=== PATIENT | male | born 1975 | race Caucasian/White ===

== ENCOUNTER 2018-09-30 19:41 | Emergency (ER) | payer OTHER ==
[~2018-09-30] VITALS: Ht 167.6 cm; Wt 78.9 kg
[~2018-09-30 19:41] MED LIST: Bactrim Ds Tab1 EACH PO; Bentyl20 MG PO; CLON.5; Cleocin HCl150 MG PO; Naprosyn500 MG PO; Norco 5-325 Ta1 EACH PO; QUET100 PO; TRAM50; Ultram50 MG PO
== END 2018-09-30 21:40 | disposition home or self-care (01) ==
LOC: ER 19:41
DX: S00.83XA Contusion of other part of head, initial encounter (principal); R03.0 Elevated blood-pressure reading, without diagnosis of hypertension; Z88.0 Allergy status to penicillin; Z79.899 Other long term (current) drug therapy; Z87.891 Personal history of nicotine dependence; W50.0XXA Accidental hit or strike by another person, initial encounter
CPT/HCPCS: 70110; 96372; 99283-25; J1885

== ENCOUNTER 2019-01-16 12:15 | Emergency (ER) | payer OTHER ==
[~2019-01-16] VITALS: Ht 172.7 cm; Wt 72.6 kg
[2019-01-16] MEDS ORDERED: DICL75ER PO (13:02)
[2019-01-16] MEDS ORDERED: Monodox100 MG PO (13:02)
== END 2019-01-16 13:10 | disposition home or self-care (01) ==
LOC: ER 12:15
DX: G56.01 Carpal tunnel syndrome, right upper limb (principal); L03.113 Cellulitis of right upper limb; Z88.0 Allergy status to penicillin; Z79.899 Other long term (current) drug therapy; Z87.891 Personal history of nicotine dependence
CPT/HCPCS: 29125; 99283-25

== ENCOUNTER 2019-04-23 22:15 | Emergency (ER) | payer OTHER ==
[~2019-04-23] VITALS: Ht 167.6 cm; Wt 74.8 kg
[~2019-04-23 22:15] MED LIST changes: +DICL75ER PO; +Monodox100 MG PO
[2019-04-23] MEDS ORDERED: QUETIAPINE FUM400 M1 PO (23:13)
[2019-04-24] MEDS ORDERED: KETO10 PO (00:21)
[2019-04-24] MEDS ORDERED: CRUTCH2 XX (00:30)
== END 2019-04-24 01:02 | disposition home or self-care (01) ==
LOC: ER 22:15
DX: S82.301A Unspecified fracture of lower end of right tibia, initial encounter for closed fracture (principal); S82.891A Other fracture of right lower leg, initial encounter for closed fracture; F25.8 Other schizoaffective disorders; Z88.0 Allergy status to penicillin; Z79.899 Other long term (current) drug therapy; Z87.891 Personal history of nicotine dependence; W23.1XXA Caught, crushed, jammed, or pinched between stationary objects, initial encounter
CPT/HCPCS: 29515; 73610; 99283-25; A9270

== ENCOUNTER 2019-12-18 11:25 | Emergency (ER) | payer OTHER ==
[~2019-12-18] VITALS: Ht 167.6 cm; Wt 79.4 kg
[~2019-12-18 11:25] MED LIST changes: +CRUTCH2 XX; +KETO10 PO; +QUETIAPINE FUM400 M1 PO
== END 2019-12-18 12:25 | disposition home or self-care (01) ==
LOC: ER 11:25
DX: J06.9 Acute upper respiratory infection, unspecified (principal); F20.0 Paranoid schizophrenia; Z20.828 Contact with and (suspected) exposure to other viral communicable diseases; Z88.0 Allergy status to penicillin; Z79.899 Other long term (current) drug therapy
CPT/HCPCS: 99282

== ENCOUNTER 2020-02-12 15:00 | Emergency (ER) | payer OTHER ==
[~2020-02-12] VITALS: Ht 167.6 cm; Wt 75.8 kg
[2020-02-12] MEDS ORDERED: Norco 5-325 Ta1 EACH PO (16:20)
[2020-02-12] MEDS ORDERED: KETO10 PO (16:20)
[2020-02-12] MEDS ORDERED: CRUTCH4 XX (16:21)
== END 2020-02-12 16:29 | disposition home or self-care (01) ==
LOC: ER 15:00
DX: S83.411A Sprain of medial collateral ligament of right knee, initial encounter (principal); F20.0 Paranoid schizophrenia; Z88.0 Allergy status to penicillin; Z79.899 Other long term (current) drug therapy; Z87.891 Personal history of nicotine dependence; W19.XXXA Unspecified fall, initial encounter
CPT/HCPCS: 29505; 73564; 96372-59; 99283-25; J1885

== ENCOUNTER 2020-02-19 08:03 | Emergency (ER) | payer OTHER ==
[~2020-02-19] VITALS: Ht 167.6 cm; Wt 75.8 kg
[~2020-02-19 08:03] MED LIST changes: +CRUTCH4 XX
[2020-02-19] MEDS ORDERED: HYOS.125 (08:41)
[2020-02-19 08:52] LABS: BASOPHILS ABSOLUTE AUTO 0.08 K/mm3 (0.00-0.23); BASOPHILS PERCENT AUTO 1 % (0-2); EOSINOPHILS PERCENT AUTO 1 % (0-6); Hematocrit 49.8 % (37.0-53.0); IMMATURE GRAN ABSOLUTE AUTO 0.07 K/mm3 (0.00-0.10); IMMATURE GRAN PERCENT AUTO 0 % (0-1); LYMPHOCYTES ABSOLUTE AUTO 2.98 K/mm3 (0.84-5.20); LYMPHOCYTES PERCENT AUTO 18 % (21-46); MONOCYTES ABSOLUTE AUTO 0.97 K/mm3 (0.16-1.47); MONOCYTES PERCENT AUTO 6 % (4-13); Mean Corpuscular HGB 31.5 pg (26.0-34.0); Mean Corpuscular HGB Conc 34.1 g/dL (31.5-36.5); Mean Corpuscular Volume 92 fL (80-100); Mean Platelet Volume 8.7 fL (9.1-12.4); NEUTROPHILS PERCENT AUTO 74 % (41-73); Platelet Count 273 K/mm3 (150-400); RDW Coefficient Variation 11.7 % (11.7-14.2); RDW Standard Deviation 39.8 fL (35.1-46.3); Red Blood Cell Count 5.39 M/mm3 (4.30-5.90)
[2020-02-19 09:06] LABS: Alanine Aminotransfer (ALT/SGP 45 U/L (12-78); Albumin, Blood 4.3 g/dL (3.4-5.0); Albumin/Globulin Ratio 1.1 (0.8-1.8); Alk Phos 70 U/L (50-136); Anion Gap 5 mmol/L (6-16); Aspartate Aminotrans (AST/SGOT 31 U/L (12-37); Bilirubin, Total 0.5 mg/dL (0.1-1.0); Blood Urea Nitrogen 19 mg/dL (8-24); Bun/Creatinine Ratio 20.7 (12.0-20.0); CO2, Blood 26 mmol/L (21-32); Calcium, Blood 9.5 mg/dL (8.5-10.1); Chloride, Blood 109 mmol/L (98-108); Creatinine, Blood 0.92 mg/dL (0.60-1.20); Globulin, Blood 3.9 g/dL (2.2-4.0); Glomerular Filtration Rate >60 (60-); Glucose, Blood 118 mg/dL (70-99); Potassium, Blood 3.8 mmol/L (3.5-5.5); Sodium, Blood 140 mmol/L (136-145); Total Protein, Blood 8.2 g/dL (6.4-8.2)
[2020-02-19] MEDS ORDERED: Zofran4 MG PO (09:45)
== END 2020-02-19 10:02 | disposition home or self-care (01) ==
LOC: ER 08:03
PROVIDERS: Emergency Medicine
DX: R10.9 Unspecified abdominal pain (principal); R11.2 Nausea with vomiting, unspecified; F11.23 Opioid dependence with withdrawal; Z88.0 Allergy status to penicillin; Z79.899 Other long term (current) drug therapy; Z86.19 Personal history of other infectious and parasitic diseases; F20.0 Paranoid schizophrenia; Z87.891 Personal history of nicotine dependence
CPT/HCPCS: 36415; 74176; 80053; 83690; 85025; J1170; J2550; J7030

== ENCOUNTER 2020-04-25 11:01 | Day surgery (SDC) | payer OTHER ==
[~2020-04-25] VITALS: Ht 167.6 cm; Wt 72.5 kg
[~2020-04-25 11:01] MED LIST changes: +HYOS.125; +IBU800 MG; +Zofran4 MG PO
--- NOTE | 2020-04-25 13:10 | NUR ---
04/25/20 1310 Gavin Roy BLOCK PERFORMED IN OR, AFTER PT INTUBATED, BY DR. LOVELACE.
--- NOTE | 2020-04-25 18:05 | NUR ---
04/25/20 1805 Monserrat Suazo LATE NOTE PT WOKE CONFUSED IN PACU, UNSURE OF WHERE HE WAS OR WHY HE WAS THERE. OREIENTED PT MULTIPLE TIMES OF PLACE, TIME, LOCATION. ONCE PT WAS MORE ORIENTED HE WAS TREATED FOR PAIN. ONCE MOVED TO STEP DOWN PT COMPLAINED OF PAIN DUE TO ELEVATION OF FOOT ON PILLOW; PER DR LOBO PLACEMENT OF PILLOW UNDER THE KNEE, NEEDED TO BE UNDER THE FOOT OR CALF. PT WAS TREATED WITH MAX DOSE OF 300MG FENTANYL WITH CONINUTED COMPLAINTS OF PAIN. DURING TREATMENT FOR PAIN CONTROL THIS RN AND ANOTHER RN WERE UNABLE TO REACH THE PT'S BY PHONE, AND SHE WAS NOT IN THE WAITING ROOM. PT TRIED REACHING HIS WITH PERSONAL PHONE AND BECAME AGITATED WHEN HE WAS UNABLE TO REACH HER. PER REPORT PT HAS SCHIZOPHRENIA AFFECTIVE DISORDER. ONCE PT'S ARRIVED PT STATED THAT HE WAS IN THE WORSE PAIN EVER, WORSE THEN HIS OTHER 6 SURGERIES ON THE KNEE, THAT THE PAIN MEDICATION WAS NOT WORKING AND THAT THIS NURSE NEEDED TO GIVE HIM SOMETHING DIFFERENT. PT WAS CONTINUOUSLY MONITORED AND TREATED FOR PAIN, SEE VITAL RECORD. DURING DISCHARGE INFO PT STATED HE COULD NOT TAKE NORCO IT CONTAINS TYLENOL AND HE IS HEP C POISITIVE. DR. VENEGAS WROTE RX FOR OXYCODONE 5MG. URINAL PROVIDED FOR RELIEF. PT BECAME NAUSEATED AND VOMITED X2, MEDICATED WITH ZOFRAN IV. PT HAD AN EXTENED STAY DUE TO PROLONGED WAKING FROM ANETHESIA, PAIN, NAUSEA AND MORAL SUPPORT.
== END 2020-04-25 17:32 | disposition home or self-care (01) ==
LOC: ORSCSDS 11:01
PROVIDERS: Orthopaedic Surgery
PROC: 0MRN47Z Replacement of Right Knee Bursa and Ligament with Autologous Tissue Substitute, Percutaneous Endoscopic Approach (ICD-10-PCS; principal; 2020-04-25 12:15)
PROC: 0SQC4ZZ Repair Right Knee Joint, Percutaneous Endoscopic Approach (ICD-10-PCS; principal; 2020-04-25 12:15)
PROC: 0SBC4ZZ Excision of Right Knee Joint, Percutaneous Endoscopic Approach (ICD-10-PCS; principal; 2020-04-25 12:15)
DX: S83.511A Sprain of anterior cruciate ligament of right knee, initial encounter (principal); S83.241A Other tear of medial meniscus, current injury, right knee, initial encounter; S83.282A Other tear of lateral meniscus, current injury, left knee, initial encounter; M94.261 Chondromalacia, right knee; K21.9 Gastro-esophageal reflux disease without esophagitis; Z79.899 Other long term (current) drug therapy; B19.20 Unspecified viral hepatitis C without hepatic coma
CPT/HCPCS: 73560-RT; A9270-GY; C1713; C1762; J0171; J1100; J2250; J2405; J2704; J2795; J3010; J7120

== ENCOUNTER 2020-10-06 09:53 | Day surgery (SDC) | payer OTHER ==
[~2020-10-06] VITALS: Ht 167.6 cm; Wt 75.7 kg
--- NOTE | 2020-10-06 13:35 | NUR ---
10/06/20 1335 Shreya Rae PATIENT RECEIVED PAMPHLETS ON DIVERTICULOSIS AND HIGH FIBER TO GO HOME
== END 2020-10-06 11:27 | disposition home or self-care (01) ==
LOC: ORSCSDS 09:53
PROVIDERS: Internal Medicine Gastroenterology
PROC: 0DBE8ZX Excision of Large Intestine, Via Natural or Artificial Opening Endoscopic, Diagnostic (ICD-10-PCS; principal; 2020-10-06 11:00)
DX: K62.5 Hemorrhage of anus and rectum (principal); R10.9 Unspecified abdominal pain; B19.20 Unspecified viral hepatitis C without hepatic coma; R19.4 Change in bowel habit; K57.30 Diverticulosis of large intestine without perforation or abscess without bleeding; K64.8 Other hemorrhoids; Z79.899 Other long term (current) drug therapy
CPT/HCPCS: 88305; J2250; J2704; J7120

== ENCOUNTER 2021-04-27 16:12 | Emergency (ER) | payer OTHER | END 2021-04-27 16:30 | disposition home or self-care (01) | LOC: ER 16:12 | DX: U07.1 COVID-19 (principal); Z88.0 Allergy status to penicillin | CPT/HCPCS: 99282 ==

== ENCOUNTER → 2022-09-03 | Outpatient (CLI) | payer OTHER ==
[~2022-09-03] MED LIST changes: +ALBU90OI INH; +CLON.5 PO; +IBUP800 PO; +MAVYRET 100-401 EAC1 PO; +Seroquel50 MG PO
[2022-09-03 16:04] LABS: BASOPHILS ABSOLUTE AUTO 0.07 K/mm3 (0.00-0.23); BASOPHILS PERCENT AUTO 1 % (0-2); EOSINOPHILS ABSOLUTE AUTO 0.17 K/mm3 (0.00-0.68); EOSINOPHILS PERCENT AUTO 2 % (0-6); Hematocrit 43.4 % (37.0-53.0); Hemoglobin 15.4 g/dL (13.5-17.5); IMMATURE GRAN ABSOLUTE AUTO 0.03 K/mm3 (0.00-0.10); IMMATURE GRAN PERCENT AUTO 0 % (0-1); LYMPHOCYTES ABSOLUTE AUTO 2.89 K/mm3 (0.84-5.20); LYMPHOCYTES PERCENT AUTO 29 % (21-46); MONOCYTES ABSOLUTE AUTO 0.63 K/mm3 (0.16-1.47); MONOCYTES PERCENT AUTO 6 % (4-13); Mean Corpuscular HGB 31.5 pg (26.0-34.0); Mean Corpuscular HGB Conc 35.5 g/dL (31.5-36.5); Mean Corpuscular Volume 89 fL (80-100); Mean Platelet Volume 8.8 fL (9.1-12.4); NEUTROPHILS ABSOLUTE AUTO 6.28 K/mm3 (1.96-9.15); NEUTROPHILS PERCENT AUTO 62 % (41-73); Platelet Count 263 K/mm3 (150-400); RDW Coefficient Variation 11.9 % (11.7-14.2); RDW Standard Deviation 38.5 fL (35.1-46.3); Red Blood Cell Count 4.89 M/mm3 (4.30-5.90); White Blood Cell Count 10.07 K/mm3 (4.00-11.30)
[2022-09-03 17:10] LABS: Cholesterol 164 mg/dL (50-200); HDL Cholesterol 41 mg/dL (>39); LDL/HDL RATIO 1.9; Low Density Lipoprotein Chol 77 mg/dL (0-110); Triglycerides 232 mg/dL (30-160); Very Low Density Lipoprot Chol 46 mg/dL (6-32)
== END | disposition home or self-care (01) ==
LOC: LAB SHORT 14:02
PROVIDERS: Student in an Organized Health Care Education/Training Program
DX: K92.1 Melena (principal); Z79.899 Other long term (current) drug therapy
CPT/HCPCS: 80061; 85025

== ENCOUNTER 2023-06-27 08:39 | Day surgery (SDC) | payer OTHER ==
[~2023-06-27] VITALS: Ht 165.1 cm; Wt 71.6 kg
--- NOTE | 2023-06-27 08:58 | NUR ---
Ambulatory in Day Surgery History, Chart, Medications and Allergies reviewed before start of procedure.Pre-Op teaching done. Pt verbalizes understanding. Patient States Post-Procedure ride home has been arranged. PT REPORTS DRINKING 3 APPLE JUICE BOXES S[address]CE [place]. DR. HODGSON AND DR. MAK AWARE. OK TO PROCEDE
[2023-06-27 09:11] VITALS: BP 124/91
--- NOTE | 2023-06-27 09:24 | NUR ---
PT EXTREMELY ANXIOUS. PULSE OX SHOWING HR 130-[address] MAK NOTIFIED OF HIGH HR. TALKING W/PT AND RECOMMENDS PT SEE A CLINICAL GENETICIST 1ST. CASE CANCELLED
--- NOTE | 2023-06-27 09:42 | NUR ---
Patient up to Ambulate independently. Gait steady. PT TO F/U WITH DR. HODGSON'S OFFICE TO GET SET UP W/CARDIOLOGY APPT. PT AGREEABLE TO POC.
== END 2023-06-27 09:43 | disposition home or self-care (01) ==
LOC: ORSCMMR 08:39 → ORD 09:30 → ORSCMMR 09:30
DX: K64.8 Other hemorrhoids (principal); Z53.9 Procedure and treatment not carried out, unspecified reason

== ENCOUNTER 2024-03-29 06:42 | Emergency (ER) | payer OTHER ==
[~2024-03-29] VITALS: Ht 172.7 cm; Wt 68.0 kg
[2024-03-29] MEDS ORDERED: Droperidol 5 mg/2 ml Vial IV ONE (06:50)
[2024-03-29] MEDS ORDERED: HYDROmorphone HCl/Pf 1MG SYR IV ONE (06:50)
[2024-03-29 06:58] LABS: BASOPHILS ABSOLUTE AUTO 0.05 K/mm3 (0.00-0.23); BASOPHILS PERCENT AUTO 1 % (0-2); EOSINOPHILS ABSOLUTE AUTO 0.17 K/mm3 (0.00-0.68); EOSINOPHILS PERCENT AUTO 2 % (0-6); Hematocrit 43.4 % (37.0-53.0); Hemoglobin 14.9 g/dL (13.5-17.5); IMMATURE GRAN ABSOLUTE AUTO 0.02 K/mm3 (0.00-0.10); IMMATURE GRAN PERCENT AUTO 0 % (0-1); LYMPHOCYTES ABSOLUTE AUTO 3.88 K/mm3 (0.84-5.20); LYMPHOCYTES PERCENT AUTO 46 % (21-46); MONOCYTES PERCENT AUTO 8 % (4-13); Mean Corpuscular HGB 30.9 pg (26.0-34.0); Mean Corpuscular HGB Conc 34.3 g/dL (31.5-36.5); Mean Corpuscular Volume 90 fL (80-100); Mean Platelet Volume 8.4 fL (9.1-12.4); NEUTROPHILS ABSOLUTE AUTO 3.64 K/mm3 (1.96-9.15); NEUTROPHILS PERCENT AUTO 43 % (41-73); Platelet Count 274 K/mm3 (150-400); RDW Coefficient Variation 11.9 % (11.7-14.2); RDW Standard Deviation 39.6 fL (35.1-46.3); Red Blood Cell Count 4.82 M/mm3 (4.30-5.90); White Blood Cell Count 8.46 K/mm3 (4.00-11.30)
[2024-03-29 07:21] LABS: Albumin, Blood 4.3 g/dL (3.4-5.0); Albumin/Globulin Ratio 1.3 (0.8-1.8); Bilirubin, Total 0.6 mg/dL (0.1-1.0); Bun/Creatinine Ratio 10.3 (12.0-20.0); Calcium, Blood 8.9 mg/dL (8.5-10.1); Creatinine, Blood 0.88 mg/dL (0.60-1.20); Globulin, Blood 3.2 g/dL (2.2-4.0); Potassium, Blood 3.4 mmol/L (3.5-5.5); Total Protein, Blood 7.5 g/dL (6.4-8.2)
[2024-03-29] MEDS ORDERED: Ketorolac Tromethamine 15mg Vial IV ONE (08:00)
[2024-03-29] MEDS ORDERED: NS 1,000 ML IV SCH (08:00)
[2024-03-29 10:55] LABS: Source, Urine Clean Catch
[2024-03-29 10:58] LABS: Appearance, Urine Clear (Clear); Bilirubin, Urine Neg (Neg); Blood, Urine 3+ (Neg); Color, Urine Yellow (P-Yellow); Glucose Qualitative, Urine Neg (Neg); Ketones, Urine 2+ (Neg); Leukocyte Esterase, Urine Neg (Neg); Nitrite, Urine Neg (Neg); Protein, Urine Neg (Neg); Urobilinogen, Urine NORM (Normal)
[2024-03-29 11:03] LABS: Amorphous Light (0-Heavy); Bacteria Rare /hpf; Squamous Epithelial Cells Not Seen /hpf (Few); White Blood Cells, Urine Not Seen /hpf (0-5)
[2024-03-29] MEDS ORDERED: ONDA4ODT MM (11:10)
[2024-03-29] MEDS ORDERED: Flomax0.4 MG PO (11:10)
[2024-03-29] MEDS ORDERED: IBUP600 PO (11:10)
[2024-03-29 11:15] VITALS: BP 117/90
== END 2024-03-29 11:44 | disposition home or self-care (01) ==
LOC: ER 06:42
PROVIDERS: Emergency Medicine
DX: N13.2 Hydronephrosis with renal and ureteral calculous obstruction (principal); Z79.899 Other long term (current) drug therapy; Z88.0 Allergy status to penicillin; Z91.040 Latex allergy status
CPT/HCPCS: 74177; 80053; 81001; 83690; 85025; J1170; J1790; J1885; J7030; Q9967